=== PATIENT | female | born 1990 | race Caucasian/White ===

== ENCOUNTER 2018-09-19 13:06 | Emergency (ER) | payer OTHER ==
[~2018-09-19] VITALS: Ht 157.5 cm; Wt 56.2 kg
[2018-09-19 13:21] VITALS: BP 111/51
[2018-09-19] MEDS ORDERED: IBUPROFEN 400 MG TABLET. PO ONE (13:30)
[2018-09-19] MEDS ORDERED: ceFAZolin IM 1 GM VIAL IM ONE (14:00)
--- NOTE | 2018-09-19 14:03 | RAD ---
Exam performed: X-ray left hand. HISTORY: Patient slammed finger in door at work with laceration and pain fourth digit. DATE OF SERVICE: 09/19/2018. COMPARISON: None available FINDINGS: AP, lateral and oblique views of the left is obtained. There is a comminuted fracture of the distal tuft of the fourth digit with associated soft tissue swelling and laceration. The remainder alignment appears preserved. No soft tissue foreign body seen. IMPRESSION: Comminuted fracture distal tuft of the fourth digit. Electronically signed by: Waleska Jones MD (09/19/2018 1:58 PM) [place] [id number]
[2018-09-19] MEDS ORDERED: HYDR-3164 PO (14:23)
[2018-09-19] MEDS ORDERED: CEPH-264 PO (14:23)
--- NOTE | 2018-09-19 14:25 | PHYS DOC ---
Past Medical History Past Medical History: No Pertinent History Past Surgical History: No Surgical History Alcohol Use: Occasionally Drug Use: None Adult General Chief Complaint Chief Complaint: FINGER INJURY [facility] HPI Patient is a 28 year old female who presents with an injury to her left fourth digit. The patient was at work today when her finger got slammed in a door. There is bleeding around the fingernail. The patient states that they wrapped it in a bandage at work. She did not take any medication for pain. Her tetanus status is up-to-date. Review of Systems Review of Systems Constitutional: Denies fever or chills [] Eyes: Denies change in visual acuity, redness, or eye pain [] HENT: Denies nasal congestion or sore throat [] Respiratory: Denies cough or shortness of breath [] Cardiovascular: No additional information not addressed in HPI [] GI: Denies abdominal pain, nausea, vomiting, bloody stools or diarrhea [] : Denies dysuria or hematuria [] Musculoskeletal: See history of present illness Integument: See history of present illness Neurologic: Denies headache, focal weakness or sensory changes [] Endocrine: Denies polyuria or polydipsia [] All other systems were reviewed and found to be within normal limits, except as documented in this note. Current Medications Current Medications Current Medications Medications (Trade) Dose Ordered Sig/[facility] Start Time Stop Time Status Last Admin Dose Admin Cefazolin Sodium (Ancef Im) 1 gm 1X ONCE 09/19/18 14:00 09/19/18 14:01 DC 09/19/18 14:16 1 GM Ibuprofen (Motrin) 800 mg 1X ONCE 09/19/18 13:30 09/19/18 13:37 DC 09/19/18 13:36 800 MG Allergies Allergies Allergies Coded Allergies Type Severity Reaction Last Updated Verified No Known Drug Allergies 09/19/18 No Physical Exam Physical Exam Constitutional: Well developed, well nourished, no acute distress, non-toxic appearance. [] Cardiovascular:Heart rate regular rhythm, no murmur [] Lungs & Thorax: Bilateral breath sounds clear to auscultation [] Abdomen: Bowel sounds normal, soft, no tenderness, no masses, no pulsatile masses. [] Skin: There is a 0.25 cm non-gaping laceration to the lateral outside edge of the fingernail, blood noted underneath the fingernail with a small hematoma under the nail noted, the matrix appears to be spared Back: No tenderness, no CVA tenderness. [] Extremities: tenderness to the fourth left digit with ecchymosis and a small laceration noted, no cyanosis, no clubbing, ROM decreased due to pain, sensation is intact Neurologic: Alert and oriented X 3, normal motor function, normal sensory function, no focal deficits noted. [] Psychologic: Affect normal, judgement normal, mood normal. [] Current Patient Data Vital Signs Vital Signs Date Time Temp Pulse Resp B/P (MAP) Pulse Ox O2 Delivery O2 Flow Rate FiO2 09/19/18 13:21 98.3 100 18 111/51 (71) 100 Room Air 98.3 EKG EKG [] Radiology/Procedures Radiology/Procedures [] PATIENT: MIRTHA DAY ACCOUNT: [id number] : 1990 LOCATION: ER AGE: 28 SEX: F EXAM STATUS: PRE ER ORD. PHYSICIAN: ALVARO FREDERICK APRN REASON: smashed 4th digit in door PROCEDURE: HAND LEFT 3V Exam performed: X-ray left hand. HISTORY: Patient slammed finger in door at work with laceration and pain fourth digit. DATE OF SERVICE: 09/19/2018. COMPARISON: None available FINDINGS: AP, lateral and oblique views of the left is obtained. There is a comminuted fracture of the distal tuft of the fourth digit with associated soft tissue swelling and laceration. The remainder alignment appears preserved. No soft tissue foreign body seen. IMPRESSION: Comminuted fracture distal tuft of the fourth digit. Electronically signed by: Waleska Jones MD (09/19/2018 1:58 PM) [id number] DICTATED and SIGNED BY: WALESKA JONES MD DATE: 09/19/18 8523 Course & Med Decision Making Course & Med Decision Making Pertinent Labs and Imaging studies reviewed. (See chart for details) The patient's wounds were cleaned and dressed. She was placed in an aluminum finger cot. She was given ibuprofen for pain and a dose of Ancef in the emergency department. She is to follow-up with orthopedics. She is in agreement with this plan. Dragon Disclaimer Dragon Disclaimer This electronic medical record was generated, in whole or in part, using a voice recognition dictation system. Departure Departure Impression: Primary Impression: Open fracture of distal phalangeal tuft Additional Impression: Laceration Disposition: 01 HOME, SELF-CARE Condition: STABLE Referrals: NO PCP (PCP) ROSALIO GRACE MD Patient Instructions: Finger Fracture Additional Instructions: Take the medication as prescribed for pain. Do not drive or operate heavy machinery while taking this medication. Follow-up with orthopedics for further management of your open fracture. Take the antibiotic as prescribed. Scripts Hydrocodone/Apap 5-325 (NORCO 5-325 TABLET) 1 Each Tablet 1 TAB PO PRN Q6HRS PRN for PAIN, #14 TAB 0 Refills Prov: ALVARO FREDERICK APRN 09/19/18 Cephalexin (KEFLEX) 500 Mg Capsule 1 CAP PO TID for fracture, #30 CAP Prov: ALVARO FREDERICK APRN 09/19/18 Problem Qualifiers ALVARO FREDERICK APRN Sep 19, 2018 14:25
== END 2018-09-19 14:34 | disposition home or self-care (01) ==
LOC: ER 13:06
DX: S62.635B Displaced fracture of distal phalanx of left ring finger, initial encounter for open fracture (principal); W23.0XXA Caught, crushed, jammed, or pinched between moving objects, initial encounter; Y93.89 Activity, other specified; Y92.89 Other specified places as the place of occurrence of the external cause; Y99.8 Other external cause status
CPT/HCPCS: 29130; 73130; 96372; 99283; J0690